=== PATIENT | male | born 1970 | race Caucasian/White ===

== ENCOUNTER 2021-01-20 13:35 | Emergency (ER) | payer BC, MEDICAID ==
[~2021-01-20] VITALS: Ht 175.3 cm; Wt 102.1 kg
[2021-01-20] MEDS ORDERED: ONDANSETRON HCL 4 MG/2 ML VIAL IV ONE ×2 (14:00→15:45)
[2021-01-20 14:40] LABS: Eosinophils # (auto) 0 10 ^3/uL (0-0.8); Hemoglobin 12.3 g/dL (13.5-17.5); Lymphocytes # (auto) 0.5 10 ^3/uL (0.4-5.4); Mean Corpuscular Hemoglobin 22.1 pg (28.0-32.0)
[2021-01-20 14:43] LABS: Basophils # (auto) 0.1 10 ^3/uL (0-0.2); Basophils % (auto) 0.5 % (0.0-2.0); Hematocrit 38.1 % (41.0-53.0); Lymphocytes % (auto) 3.5 % (10.0-50.0); Mean Corpuscular Hgb Conc. 32.3 g/dL (32.0-36.0); Mean Corpuscular Volume 68.4 fL (80.0-100.0); Monocytes # (auto) 0.4 10 ^3/uL (0-1.3); Neutrophils # (auto) 13.3 10 ^3/uL (1.6-8.6); Nucleated Red Blood Cells % 0.1 %; Red Blood Cells 5.56 10^6/uL (4.5-5.90); Red Cell Distribution Width 18.1 % (11.8-14.3); White Blood Cell 14.3 10^3/uL (4.4-10.8)
[2021-01-20 15:12] LABS: Albumin 3.7 g/dL (3.4-5.0); Calcium 9.2 mg/dL (8.5-10.1); Magnesium 2.7 mg/dL (1.6-2.6)
[2021-01-20 15:18] LABS: Urine Bacteria FEW /hpf (None Seen); Urine Blood Negative /uL (Negative); Urine Hyaline Cast MOD /lpf (0 - 2); Urine Mucus FEW (None Seen); Urine Specific Gravity 1.024 (1.001-1.035); Urine WBC 2 /hpf (0 - 3)
[2021-01-20 15:33] LABS: BUN/Creatinine Ratio 20.3; Bilirubin, Total 0.9 mg/dL (0.2-1.0)
[2021-01-20 15:34] LABS: INR 2.62 (0.9-1.15); Partial Thromboplastin Time 39.4 sec (23.6-33.0)
[2021-01-20] MEDS ORDERED: MORPHINE SULFATE 4 MG/ML SYR/VIAL IV ONE (16:00)
[2021-01-20 17:07] VITALS: BP 93/63
== END 2021-01-20 17:10 | disposition home or self-care (01) ==
LOC: ER 13:35
DX: R11.2 Nausea with vomiting, unspecified (principal); E11.9 Type 2 diabetes mellitus without complications; I50.9 Heart failure, unspecified; Z20.822 Contact with and (suspected) exposure to COVID-19; Z90.49 Acquired absence of other specified parts of digestive tract; Z90.89 Acquired absence of other organs; Z95.0 Presence of cardiac pacemaker; Z88.8 Allergy status to other drugs, medicaments and biological substances
CPT/HCPCS: 36415; 71045; 80053; 81001; 83735; 83880; 84484; 85025; 85610; 85730; 87426; 93005; 96374; 96375; 99285; J2270; J2405

== ENCOUNTER 2021-03-11 13:13 | Inpatient (IN) | payer BC, MEDICAID ==
[~2021-03-11] VITALS: Ht 175.3 cm; Wt 107.9 kg
[2021-03-11] MEDS ORDERED: SODIUM CHLORIDE 0.9% 1,000 ML IVB ONE (13:45)
[2021-03-11] MEDS ORDERED: ONDANSETRON HCL 4 MG/2 ML VIAL IV ONE (13:45)
[2021-03-11] MEDS ORDERED: MORPHINE SULFATE 4 MG/ML SYR/VIAL IV ONE (13:45)
[2021-03-11 15:12] LABS: Eosinophils # (auto) 0.1 10 ^3/uL (0-0.8); Lymphocytes # (auto) 1.5 10 ^3/uL (0.4-5.4); Monocytes # (auto) 0.9 10 ^3/uL (0-1.3)
[2021-03-11 15:15] LABS: Basophils # (auto) 0 10 ^3/uL (0-0.2); Basophils % (auto) 0.4 % (0.0-2.0); Eosinophils % (auto) 0.7 % (0.0-7.0); Hematocrit 35.6 % (41.0-53.0); Hemoglobin 11.7 g/dL (13.5-17.5); Lymphocytes % (auto) 14.9 % (10.0-50.0); Mean Corpuscular Hemoglobin 22.1 pg (28.0-32.0); Mean Corpuscular Volume 66.9 fL (80.0-100.0); Monocytes % (auto) 8.4 % (0.0-12.0); Neutrophils # (auto) 7.7 10 ^3/uL (1.6-8.6); Neutrophils % (auto) 75.6 % (37.0-80.0); Nucleated Red Blood Cells % 0.1 %; Red Blood Cells 5.31 10^6/uL (4.5-5.90); Red Cell Distribution Width 18.8 % (11.8-14.3); White Blood Cell 10.2 10^3/uL (4.4-10.8)
[2021-03-11 15:30] LABS: Albumin 3.9 g/dL (3.4-5.0); Calcium 8.6 mg/dL (8.5-10.1)
[2021-03-11 15:36] LABS: BUN/Creatinine Ratio 21.4; Bilirubin, Total 0.5 mg/dL (0.2-1.0); Total Protein 7.8 g/dL (6.4-8.2)
[2021-03-11] MEDS ORDERED: MORPHINE SULFATE INJECTION 2 MG/ML SYRG IV PRN ×2 (16:15→18:15)
[2021-03-11] MEDS ORDERED: NITROGLYCERIN 0.4 MG SL TAB SL PRN ×2 (16:15→18:15)
[2021-03-11 16:45] LABS: Potassium 2.6 mmol/L (3.5-5.1)
[2021-03-11] MEDS: POTASSIUM CHL 20MEQ/50ML 50 ML IV SCH ×3 (17:28→23:04)
[2021-03-11] MEDS ORDERED: SODIUM CHLORIDE 0.9% 1,000 ML IV ONE (17:30)
[2021-03-11] MEDS ORDERED: MAGNESIUM SULFATE 1GM/100ML 100 ML IV ONE (17:30)
[2021-03-11] MEDS ORDERED: PANTOPRAZOLE 40 MG/10 ML VIAL INJ IV ONE (18:00)
[2021-03-11] MEDS ORDERED: DEXTROSE (50%) 50ML SYRG IV PRN (18:00)
[2021-03-11] MEDS ORDERED: BUMETANIDE 2.5mg/10ml (0.25 mg/ml) INJ IV ONE (18:00)
[2021-03-11] MEDS: BUMETANIDE 2.5mg/10ml (0.25 mg/ml) INJ IV SCH (18:13)
[2021-03-11] MEDS ORDERED: LORazepam 0.5 MG TAB PO PRN (18:15)
[2021-03-11] MEDS ORDERED: HYDROcodone-ACET 5/325MG TAB PO PRN (18:15)
[2021-03-11] MEDS ORDERED: METOCLOPRAMIDE HCL 5MG/ml INJ 2ml VIAL IV PRN (18:15)
[2021-03-11] MEDS ORDERED: DOCUSATE SOD 100 MG CAP PO PRN (18:15)
[2021-03-11] MEDS ORDERED: ALUM & MAG HYDROX-SIMETH LIQ(MAALOX) 30 ML PO PRN (18:15)
[2021-03-11 19:20] LABS: INR 2.11 (0.9-1.15); Partial Thromboplastin Time 40.6 sec (23.6-33.0)
[2021-03-11] MEDS: MORPHINE SULFATE INJECTION 2 MG/ML SYRG IV PRN (21:20)
[2021-03-11 21:31] LABS: % Iron Saturation 7.8 % (20-55)
[2021-03-11 21:48] VITALS: BP 105/89
[2021-03-11 22:00] VITALS: BP 105/89
[2021-03-11] MEDS ORDERED: MAGNESIUM OXIDE 400 MG TAB PO SCH (22:00)
[2021-03-11 22:09] LABS: Urine Bacteria NONE SEEN /hpf (None Seen); Urine Blood Negative /uL (Negative); Urine Specific Gravity 1.005 (1.001-1.035); Urine WBC 1 /hpf (0 - 3)
[2021-03-11] MEDS: POTASSIUM CHL 20 Meq TABLET PO SCH (23:05)
[2021-03-11] MEDS: ATORVASTATIN 20 MG TAB PO SCH (23:05)
[2021-03-11] MEDS: ACCU-CHEK COMFORT CURVE STRIP VI SCH (23:05)
[2021-03-11] MEDS: InsuLIN REG 1unit/0.01ml Soln (100units/ml) SC SCH (23:43)
[2021-03-12 00:03] LABS: Alcohol, Urine < 3.0 mg/dL (0-10); Amphetamine Screen, Urine NEGATIVE (NEGATIVE); Barbiturate Scree,Urine NEGATIVE (NEGATIVE); Benzodiazephine Screen, Urine NEGATIVE (NEGATIVE); Cannabinoid Screen, Urine NEGATIVE (NEGATIVE); Cocaine Screen, Urine NEGATIVE (NEGATIVE); Opiate Scree,Urine NEGATIVE (NEGATIVE); Phencyclidine Screen, Urine NEGATIVE (NEGATIVE)
[2021-03-12] MEDS: POTASSIUM CHL 20MEQ/50ML 50 ML IV SCH (00:36)
[2021-03-12] MEDS: SOD CHL 0.9%/ KCL 20MEQ 1,000 ML IV SCH ×3 (02:04→20:29)
[2021-03-12] MEDS: MORPHINE SULFATE INJECTION 2 MG/ML SYRG IV PRN ×3 (02:20→23:23)
[2021-03-12] MEDS ORDERED: METF-929 PO (03:32)
[2021-03-12] MEDS ORDERED: MAGN241.4 PO (03:32)
[2021-03-12] MEDS ORDERED: WARF6TAB21 PO (03:32)
[2021-03-12] MEDS ORDERED: METF-370 PO (03:32)
[2021-03-12] MEDS ORDERED: ALBU108A5 IN (03:32)
[2021-03-12] MEDS ORDERED: POTA10TA51 PO (03:32)
[2021-03-12] MEDS ORDERED: EPLE50TA3 PO (03:32)
[2021-03-12] MEDS ORDERED: ASPI81CH59 PO (03:32)
[2021-03-12] MEDS ORDERED: PANT40T PO (03:32)
[2021-03-12] MEDS ORDERED: GABA400C11 PO (03:32)
[2021-03-12] MEDS ORDERED: BUME1TAB3 PO (03:32)
[2021-03-12] MEDS ORDERED: ATOR20TA50 PO (03:32)
[2021-03-12] MEDS ORDERED: AMIO200T4 PO (03:32)
[2021-03-12] MEDS ORDERED: FERR324T4 PO (03:32)
[2021-03-12] MEDS ORDERED: GABA800T97 PO (03:32)
[2021-03-12] MEDS ORDERED: SILD20TA2 PO (03:32)
[2021-03-12] MEDS ORDERED: MELA3TAB27 PO (03:32)
[2021-03-12] MEDS ORDERED: SERT-160 PO (03:32)
[2021-03-12] MEDS ORDERED: DAPA1TAB4 PO (03:32)
[2021-03-12] MEDS ORDERED: SEMA2INJ SC (03:32)
[2021-03-12 05:00] VITALS: BP 98/72
[2021-03-12 05:42] LABS: Basophils # (auto) 0 10 ^3/uL (0-0.2); Eosinophils # (auto) 0.1 10 ^3/uL (0-0.8); Lymphocytes # (auto) 1.5 10 ^3/uL (0.4-5.4); Nucleated Red Blood Cells % 0.1 %
[2021-03-12 05:44] LABS: Basophils % (auto) 0.4 % (0.0-2.0); Eosinophils % (auto) 1.1 % (0.0-7.0); Hematocrit 30.8 % (41.0-53.0); Hemoglobin 10.3 g/dL (13.5-17.5); Lymphocytes % (auto) 15.7 % (10.0-50.0); Mean Corpuscular Hemoglobin 22.3 pg (28.0-32.0); Mean Corpuscular Hgb Conc. 33.3 g/dL (32.0-36.0); Mean Corpuscular Volume 66.9 fL (80.0-100.0); Monocytes # (auto) 1.2 10 ^3/uL (0-1.3); Monocytes % (auto) 12.6 % (0.0-12.0); Neutrophils # (auto) 6.6 10 ^3/uL (1.6-8.6); Neutrophils % (auto) 70.2 % (37.0-80.0); Red Cell Distribution Width 19.4 % (11.8-14.3); White Blood Cell 9.4 10^3/uL (4.4-10.8)
[2021-03-12 05:56] LABS: INR 1.86 (0.9-1.15); Partial Thromboplastin Time 36.9 sec (23.6-33.0)
[2021-03-12 06:05] LABS: Albumin 3.4 g/dL (3.4-5.0); Calcium 8.1 mg/dL (8.5-10.1); Magnesium 3.2 mg/dL (1.6-2.6)
[2021-03-12 06:12] LABS: BUN/Creatinine Ratio 21.4; Bilirubin, Total 0.5 mg/dL (0.2-1.0); Phosphorus 2.7 mg/dL (2.5-4.90); Total Protein 6.8 g/dL (6.4-8.2); Uric Acid 7.8 mg/dL (3.5-7.2)
[2021-03-12] MEDS: InsuLIN REG 1unit/0.01ml Soln (100units/ml) SC SCH ×4 (07:00→21:33)
[2021-03-12] MEDS: ACCU-CHEK COMFORT CURVE STRIP VI SCH ×4 (07:09→21:30)
[2021-03-12] MEDS: BUMETANIDE 2.5mg/10ml (0.25 mg/ml) INJ IV SCH ×2 (07:10→18:00)
[2021-03-12 09:00] VITALS: BP 103/83
[2021-03-12] MEDS: POTASSIUM CHL 20 Meq TABLET PO SCH ×2 (10:00→21:30)
[2021-03-12] MEDS ORDERED: PANTOPRAZOLE 40 MG/10 ML VIAL INJ IV SCH (10:00)
[2021-03-12] MEDS ORDERED: AMIODARONE HCL 200 MG TAB PO SCH (10:00)
[2021-03-12] MEDS ORDERED: DAPAGLIFLOZIN 5 MG TAB PO SCH (10:00)
[2021-03-12] MEDS ORDERED: SERTRALINE HCL 50 MG TAB PO SCH (10:00)
[2021-03-12 13:00] VITALS: BP 93/69
[2021-03-12 17:00] VITALS: BP 101/49
[2021-03-12] MEDS ORDERED: WARFARIN SODIUM 2 MG TAB PO ONE (17:00)
[2021-03-12] MEDS: ATORVASTATIN 20 MG TAB PO SCH (21:30)
[2021-03-12 22:00] VITALS: BP 104/77
[2021-03-12 23:53] VITALS: BP 100/72
[2021-03-13] MEDS ORDERED: ACETAMINOPHEN 325 MG TAB PO ONE (03:00)
[2021-03-14 13:36] LABS: Hepatitis A Ab IgM Negative
[2021-03-14 13:56] LABS: Hepatitis B Core IgM Negative
[2021-03-14 14:04] LABS: Hepatitis C Antibody Negative (Negative)
== END 2021-03-13 03:02 | disposition left against medical advice (07) | DRG 311 ==
LOC: EDBD 13:13 → ER 13:13 → EDUNIT# 13:13 → TELE-WESTW 18:08
PROVIDERS: ADMIT Hospitalist; ATTEND Family Medicine
DX: I24.9 Acute ischemic heart disease, unspecified (principal); I50.23 Acute on chronic systolic (congestive) heart failure; D68.4 Acquired coagulation factor deficiency; I42.7 Cardiomyopathy due to drug and external agent; Z95.811 Presence of heart assist device; I11.0 Hypertensive heart disease with heart failure; D50.9 Iron deficiency anemia, unspecified; E11.40 Type 2 diabetes mellitus with diabetic neuropathy, unspecified; E66.01 Morbid (severe) obesity due to excess calories; Z53.29 Procedure and treatment not carried out because of patient's decision for other reasons; E78.5 Hyperlipidemia, unspecified; E87.6 Hypokalemia; F15.90 Other stimulant use, unspecified, uncomplicated; F32.A Depression, unspecified; I50.82 Biventricular heart failure; K21.9 Gastro-esophageal reflux disease without esophagitis; E78.00 Pure hypercholesterolemia, unspecified; Z20.822 Contact with and (suspected) exposure to COVID-19; Z82.3 Family history of stroke; Z83.3 Family history of diabetes mellitus; Z91.19 Patient's noncompliance with other medical treatment and regimen; Z95.810 Presence of automatic (implantable) cardiac defibrillator; Z76.82 Awaiting organ transplant status; Z88.8 Allergy status to other drugs, medicaments and biological substances; Z90.49 Acquired absence of other specified parts of digestive tract; Z68.34 Body mass index [BMI] 34.0-34.9, adult; Z79.4 Long term (current) use of insulin
CPT/HCPCS: 36415; 71045; 76705; 80053; 80074; 80307; 81001; 82306; 82962; 83036; 83540; 83550; 83735; 83880; 84100; 84443; 84484; 84550; 85025; 85379; 85610; 85730; 86160; 87040; 87086; 87426; 93005; 96361; 96374; 96375; C9113; G0378; J1815; J2405

== ENCOUNTER → 2022-01-31 | Outpatient (CLI) | payer MEDICAID ==
[~2022-01-31] VITALS: Ht 177.8 cm; Wt 99.3 kg
[~2022-01-31] MED LIST: ADENOSINE 83 MG in GIVE UN-DILUTED 0 ML IV ONE; ADENOSINE 90 MG/30 ML INJ IV ONE; ALBU108A5 IN; AMIO200T4 PO; ASPI81CH59 PO; ATOR20TA50 PO; BUME1TAB3 PO; DAPA1TAB4 PO; EPLE50TA3 PO; FERR324T4 PO; GABA400C11 PO; GABA800T97 PO; MAGN241.4 PO; MELA3TAB27 PO; METF-370 PO; METF-929 PO; PANT40T PO; POTA10TA51 PO; SEMA2INJ SC; SERT-160 PO; SILD20TA2 PO; WARF6TAB21 PO
== END | disposition home or self-care (01) ==
LOC: Rad HDHVI 08:58
PROVIDERS: ATTEND Internal Medicine Cardiovascular Disease
DX: R07.9 Chest pain, unspecified (principal); E78.5 Hyperlipidemia, unspecified; I10 Essential (primary) hypertension; E11.9 Type 2 diabetes mellitus without complications; R06.02 Shortness of breath; I47.20 Ventricular tachycardia, unspecified; Z95.0 Presence of cardiac pacemaker; Z94.1 Heart transplant status; Z79.82 Long term (current) use of aspirin; Z79.899 Other long term (current) drug therapy
CPT/HCPCS: 78452; 93005; 96374; 96375; A9500; J0153

== ENCOUNTER → 2022-02-14 | Outpatient (CLI) | payer MEDICAID ==
[~2022-02-14] MED LIST changes: -ADENOSINE 83 MG in GIVE UN-DILUTED 0 ML IV ONE; -ADENOSINE 90 MG/30 ML INJ IV ONE
== END | disposition home or self-care (01) ==
LOC: Rad HDHVI 08:53
PROVIDERS: ATTEND Internal Medicine Cardiovascular Disease
DX: I08.1 Rheumatic disorders of both mitral and tricuspid valves (principal); I10 Essential (primary) hypertension; E78.5 Hyperlipidemia, unspecified
CPT/HCPCS: 93306

== ENCOUNTER → 2022-11-14 | Outpatient (CLI) | payer OTHER, MEDICAID ==
[~2022-11-14] MED LIST changes: +AMIO200T13 PO; -AMIO200T4 PO; +GABA-1251 PO; -GABA400C11 PO; +WARF-113 PO; -WARF6TAB21 PO
[2022-11-14 10:12] LABS: Basophils # (auto) 0 10 ^3/uL (0-0.2); Basophils % (auto) 0.4 % (0.0-2.0); Eosinophils # (auto) 0.1 10 ^3/uL (0-0.8); Hemoglobin 13.4 g/dL (13.5-17.5); Lymphocytes # (auto) 1.2 10 ^3/uL (0.4-5.4); Monocytes # (auto) 0.7 10 ^3/uL (0-1.3); Neutrophils # (auto) 5.3 10 ^3/uL (1.6-8.6)
[2022-11-14 10:15] LABS: Eosinophils % (auto) 1.6 % (0.0-7.0); Hematocrit 41.8 % (41.0-53.0); Lymphocytes % (auto) 16.2 % (10.0-50.0); Mean Corpuscular Hemoglobin 20.2 pg (28.0-32.0); Monocytes % (auto) 9.2 % (0.0-12.0); Neutrophils % (auto) 72.6 % (37.0-80.0); Nucleated Red Blood Cells % 0.2 %; Red Blood Cells 6.63 10^6/uL (4.5-5.90); Red Cell Distribution Width 19.8 % (11.8-14.3); White Blood Cell 7.4 10^3/uL (4.4-10.8)
[2022-11-14 10:16] LABS: Urine Bacteria NONE SEEN /hpf (None Seen); Urine Blood Negative /uL (Negative); Urine Clarity Clear (Clear); Urine Color Colorless (Yellow); Urine Protein, UAD Negative (Negative); Urine Specific Gravity 1.022 (1.001-1.035); Urine Urobilinogen Normal (Negative); Urine WBC 1 /hpf (0 - 3)
[2022-11-14 10:58] LABS: Platelet Estimate Adequate
[2022-11-14 10:59] LABS: Anisocytosis Slight; Hypochromia Slight
[2022-11-14 11:40] LABS: Folate (Folic Acid) 7.55 ng/mL (>5.38)
[2022-11-14 11:52] LABS: Alanine Aminotransferase 35 U/L (7-40); Albumin 4.8 g/dL (3.2-4.8); Alkaline Phosphatase 131 U/L (46-116); Aspartate Aminotransferase 29 U/L (13-40); BUN/Creatinine Ratio 14.1 (10.0-20.0); Blood Urea Nitrogen 21 mg/dL (9-23); Calcium 9.5 mg/dL (8.5-10.1); Chloride 100 mmol/L (98-107); Cholesterol 161 mg/dL (< 200); Glucose 253 mg/dL (74-106); HDL Cholesterol 37 mg/dL (40-59); Potassium 4.3 mmol/L (3.5-5.1); Sodium 135 mmol/L (136-145); Triglycerides 447 mg/dL (< 150); Uric Acid 6.2 mg/dL (3.7-9.2)
[2022-11-14 11:53] LABS: Bilirubin, Total 0.5 mg/dL (0.2-1.0); Total Protein 7.7 g/dL (5.7-8.2)
== END | disposition home or self-care (01) ==
LOC: LAB 09:19
PROVIDERS: ATTEND Internal Medicine
DX: R79.89 Other specified abnormal findings of blood chemistry (principal); R68.89 Other general symptoms and signs; E78.41 Elevated Lipoprotein(a); R73.09 Other abnormal glucose; E61.2 Magnesium deficiency; D51.9 Vitamin B12 deficiency anemia, unspecified; E55.9 Vitamin D deficiency, unspecified; R82.90 Unspecified abnormal findings in urine
CPT/HCPCS: 36415; 80053; 80061; 81001; 82306; 82607; 82746; 83036; 83735; 84443; 84550; 85025; 87086

== ENCOUNTER → 2023-05-11 | Outpatient (CLI) | payer OTHER, MEDICAID ==
[2023-05-11 09:36] LABS: Basophils # (auto) 0 10 ^3/uL (0-0.2); Eosinophils # (auto) 0.1 10 ^3/uL (0-0.8); Mean Corpuscular Volume 69.6 fL (80.0-100.0); Monocytes # (auto) 0.6 10 ^3/uL (0-1.3); Monocytes % (auto) 8.1 % (0.0-12.0); Red Cell Distribution Width 18.7 % (11.8-14.3)
[2023-05-11 09:38] LABS: Basophils % (auto) 0.4 % (0.0-2.0); Eosinophils % (auto) 1.6 % (0.0-7.0); Hematocrit 42.5 % (41.0-53.0); Hemoglobin 13.7 g/dL (13.5-17.5); Lymphocytes # (auto) 1.5 10 ^3/uL (0.4-5.4); Lymphocytes % (auto) 20.6 % (10.0-50.0); Mean Corpuscular Hemoglobin 22.5 pg (28.0-32.0); Mean Corpuscular Hgb Conc. 32.4 g/dL (32.0-36.0); Neutrophils # (auto) 5.2 10 ^3/uL (1.6-8.6); Neutrophils % (auto) 69.3 % (37.0-80.0); White Blood Cell 7.5 10^3/uL (4.4-10.8)
[2023-05-11 09:40] LABS: Urine Bacteria NONE SEEN /hpf (None Seen); Urine Blood Negative /uL (Negative); Urine Clarity Clear (Clear); Urine Color Yellow (Yellow); Urine Hyaline Cast FEW /lpf (0 - 2); Urine Protein, UAD TRACE (Negative); Urine Specific Gravity 1.028 (1.001-1.035); Urine Urobilinogen Normal (Negative); Urine WBC 1 /hpf (0 - 3)
[2023-05-11 10:39] LABS: Alanine Aminotransferase 33 U/L (7-40); Albumin 4.5 g/dL (3.2-4.8); Alkaline Phosphatase 72 U/L (46-116); Anion Gap 8 (5-15); Aspartate Aminotransferase 32 U/L (13-40); Bilirubin, Total 0.4 mg/dL (0.2-1.0); Blood Urea Nitrogen 15 mg/dL (9-23); Calcium 9.6 mg/dL (8.5-10.1); Carbon Dioxide 22 mmol/L (20-30); Chloride 108 mmol/L (98-107); Cholesterol 111 mg/dL (< 200); Glucose 139 mg/dL (74-106); HDL Cholesterol 26 mg/dL (40-59); LDL Cholesterol 64 mg/dL (< 100); Potassium 4.6 mmol/L (3.5-5.1); Sodium 138 mmol/L (136-145); Total Protein 7.2 g/dL (5.7-8.2); Triglycerides 288 mg/dL (< 150)
[2023-05-11 10:43] LABS: Folate (Folic Acid) 9.2 ng/mL (>5.38)
[2023-05-11 11:24] LABS: Uric Acid 4.7 mg/dL (3.7-9.2)
[2023-05-11 11:25] LABS: Magnesium 1.9 mg/dL (1.6-2.6)
== END | disposition home or self-care (01) ==
LOC: LAB 09:16
PROVIDERS: ATTEND Internal Medicine
DX: R78.89 Finding of other specified substances, not normally found in blood (principal); E78.9 Disorder of lipoprotein metabolism, unspecified; R68.89 Other general symptoms and signs; R73.09 Other abnormal glucose; E61.2 Magnesium deficiency; R82.998 Other abnormal findings in urine; E85.9 Amyloidosis, unspecified; E79.0 Hyperuricemia without signs of inflammatory arthritis and tophaceous disease; D51.9 Vitamin B12 deficiency anemia, unspecified
CPT/HCPCS: 36415; 80053; 80061; 81001; 82306; 82607; 82746; 83036; 83735; 84443; 84550; 85025; 87086

== ENCOUNTER → 2023-08-21 | Outpatient (CLI) | payer OTHER, MEDICAID ==
[~2023-08-21] MED LIST changes: +POTA-36 PO; -POTA10TA51 PO; -SILD20TA2 PO; +SILD20TA41 PO
[2023-08-21 10:05] LABS: Urine Bacteria None Seen /hpf (None Seen)
[2023-08-21 10:24] LABS: Urine Blood Negative /uL (Negative); Urine Clarity Clear (Clear); Urine Color Yellow (Yellow); Urine Protein, UAD TRACE (Negative); Urine Specific Gravity 1.038 (1.001-1.035); Urine Urobilinogen Normal (Negative); Urine WBC <1 /hpf (0 - 3)
[2023-08-21 10:26] LABS: Basophils # (auto) 0 10 ^3/uL (0-0.2); Eosinophils # (auto) 0.1 10 ^3/uL (0-0.8); Lymphocytes # (auto) 1.2 10 ^3/uL (0.4-5.4); Neutrophils # (auto) 2.7 10 ^3/uL (1.6-8.6); Nucleated Red Blood Cells % 0.1 %
[2023-08-21 10:28] LABS: Basophils % (auto) 0.1 % (0.0-2.0); Eosinophils % (auto) 1.6 % (0.0-7.0); Hematocrit 42.4 % (41.0-53.0); Lymphocytes % (auto) 27.2 % (10.0-50.0); Mean Corpuscular Hemoglobin 23.7 pg (28.0-32.0); Mean Corpuscular Volume 71.8 fL (80.0-100.0); Monocytes # (auto) 0.6 10 ^3/uL (0-1.3); Monocytes % (auto) 12.3 % (0.0-12.0); Neutrophils % (auto) 58.8 % (37.0-80.0); Red Cell Distribution Width 17.6 % (11.8-14.3); White Blood Cell 4.5 10^3/uL (4.4-10.8)
[2023-08-21 10:40] LABS: Alanine Aminotransferase 39 U/L (7-40); Albumin 4.4 g/dL (3.2-4.8); Alkaline Phosphatase 79 U/L (46-116); Anion Gap 4 (5-15); Aspartate Aminotransferase 21 U/L (13-40); BUN/Creatinine Ratio 10.7 (10.0-20.0); Bilirubin, Total 0.4 mg/dL (0.2-1.0); Blood Urea Nitrogen 17 mg/dL (9-23); Calcium 9.7 mg/dL (8.5-10.1); Carbon Dioxide 28 mmol/L (20-30); Chloride 110 mmol/L (98-107); Cholesterol 138 mg/dL (< 200); Glucose 160 mg/dL (74-106); HDL Cholesterol 34 mg/dL (40-59); LDL Cholesterol 72 mg/dL (< 100); Magnesium 1.7 mg/dL (1.6-2.6); Phosphorus 2.7 mg/dL (2.4-5.1); Potassium 4.6 mmol/L (3.5-5.1); Sodium 142 mmol/L (136-145); Total Protein 6.8 g/dL (5.7-8.2); Triglycerides 289 mg/dL (< 150)
[2023-08-21 11:04] LABS: Uric Acid 4.9 mg/dL (3.7-9.2)
[2023-08-21 11:33] LABS: Folate (Folic Acid) 8.3 ng/mL (>5.38)
== END | disposition home or self-care (01) ==
LOC: LAB 09:49
PROVIDERS: ATTEND Internal Medicine
DX: E61.2 Magnesium deficiency (principal); E79.0 Hyperuricemia without signs of inflammatory arthritis and tophaceous disease; R73.9 Hyperglycemia, unspecified; E78.49 Other hyperlipidemia; R68.89 Other general symptoms and signs; R94.6 Abnormal results of thyroid function studies; R82.90 Unspecified abnormal findings in urine; D51.9 Vitamin B12 deficiency anemia, unspecified; E55.9 Vitamin D deficiency, unspecified; R82.79 Other abnormal findings on microbiological examination of urine; Z94.1 Heart transplant status
CPT/HCPCS: 36415; 80053; 80061; 80197; 81001; 82306; 82607; 82746; 83036; 83735; 84100; 84443; 84550; 85025

== ENCOUNTER → 2023-11-13 | Outpatient (CLI) | payer OTHER, MEDICAID ==
[~2023-11-13] MED LIST changes: +EPLE50TA PO; -EPLE50TA3 PO
[2023-11-13 11:11] LABS: Basophils # (auto) 0 10 ^3/uL (0-0.2); Basophils % (auto) 0.2 % (0.0-2.0); Eosinophils # (auto) 0.1 10 ^3/uL (0-0.8); Eosinophils % (auto) 1.2 % (0.0-7.0); Hematocrit 43.3 % (41.0-53.0); Hemoglobin 14.2 g/dL (13.5-17.5); Lymphocytes # (auto) 1.4 10 ^3/uL (0.4-5.4); Lymphocytes % (auto) 21.3 % (10.0-50.0); Mean Corpuscular Hgb Conc. 32.9 g/dL (32.0-36.0); Monocytes # (auto) 0.7 10 ^3/uL (0-1.3); Neutrophils # (auto) 4.5 10 ^3/uL (1.6-8.6); Neutrophils % (auto) 66.3 % (37.0-80.0); Nucleated Red Blood Cells % 0.7 %; Platelet Count (auto) 230 10^3/uL (140-450); Red Blood Cells 5.92 10^6/uL (4.5-5.90); Red Cell Distribution Width 17.5 % (11.8-14.3); White Blood Cell 6.8 10^3/uL (4.4-10.8)
[2023-11-13 12:08] LABS: Alanine Aminotransferase 39 U/L (7-40); Albumin 4.5 g/dL (3.2-4.8); Alkaline Phosphatase 95 U/L (46-116); Anion Gap 8 (5-15); Aspartate Aminotransferase 36 U/L (13-40); BUN/Creatinine Ratio 13.4 (10.0-20.0); Bilirubin, Total 0.7 mg/dL (0.2-1.0); Blood Urea Nitrogen 17 mg/dL (9-23); Calcium 9.3 mg/dL (8.7-10.4); Carbon Dioxide 21 mmol/L (20-30); Chloride 110 mmol/L (98-107); Glucose 190 mg/dL (74-106); Magnesium 1.7 mg/dL (1.6-2.6); Phosphorus 3.4 mg/dL (2.4-5.1); Potassium 4.8 mmol/L (3.5-5.1); Sodium 139 mmol/L (136-145); Total Protein 6.9 g/dL (5.7-8.2)
== END | disposition home or self-care (01) ==
LOC: LAB 10:39
DX: Z94.1 Heart transplant status (principal)
CPT/HCPCS: 36415; 80053; 80197; 83735; 84100; 85025

== ENCOUNTER → 2023-12-12 | Outpatient (CLI) | payer OTHER, MEDICAID ==
[2023-12-12 09:44] LABS: Urine Bacteria None Seen /hpf (None Seen)
[2023-12-12 10:13] LABS: Basophils # (auto) 0 10 ^3/uL (0-0.2); Basophils % (auto) 0.3 % (0.0-2.0); Eosinophils # (auto) 0.1 10 ^3/uL (0-0.8); Eosinophils % (auto) 1.3 % (0.0-7.0); Hematocrit 42.6 % (41.0-53.0); Hemoglobin 14.4 g/dL (13.5-17.5); Lymphocytes # (auto) 1.4 10 ^3/uL (0.4-5.4); Lymphocytes % (auto) 23.6 % (10.0-50.0); Mean Corpuscular Hemoglobin 25.1 pg (28.0-32.0); Mean Corpuscular Hgb Conc. 33.9 g/dL (32.0-36.0); Mean Corpuscular Volume 74.2 fL (80.0-100.0); Monocytes # (auto) 0.5 10 ^3/uL (0-1.3); Monocytes % (auto) 9.1 % (0.0-12.0); Neutrophils # (auto) 3.9 10 ^3/uL (1.6-8.6); Neutrophils % (auto) 65.7 % (37.0-80.0); Nucleated Red Blood Cells % 0.1 %; Platelet Count (auto) 202 10^3/uL (140-450); Red Blood Cells 5.73 10^6/uL (4.5-5.90); Red Cell Distribution Width 17.5 % (11.8-14.3); White Blood Cell 5.9 10^3/uL (4.4-10.8)
[2023-12-12 10:29] LABS: Alanine Aminotransferase 37 U/L (7-40); Albumin 4.4 g/dL (3.2-4.8); Alkaline Phosphatase 121 U/L (46-116); Anion Gap 7 (5-15); Aspartate Aminotransferase 25 U/L (13-40); BUN/Creatinine Ratio 11.5 (10.0-20.0); Blood Urea Nitrogen 16 mg/dL (9-23); Calcium 9.4 mg/dL (8.7-10.4); Carbon Dioxide 23 mmol/L (20-31); Chloride 106 mmol/L (98-107); Cholesterol 116 mg/dL (< 200); Glucose 250 mg/dL (74-106); Magnesium 1.8 mg/dL (1.6-2.6); Potassium 4.3 mmol/L (3.5-5.1); Sodium 136 mmol/L (136-145); Total Protein 6.8 g/dL (5.7-8.2); Triglycerides 622 mg/dL (< 150)
[2023-12-12 10:30] LABS: Bilirubin, Total 0.5 mg/dL (0.2-1.0); HDL Cholesterol 31 mg/dL (40-59); Phosphorus 3.2 mg/dL (2.4-5.1)
[2023-12-12 10:45] LABS: Urine Blood Negative /uL (Negative); Urine Clarity Clear (Clear); Urine Color Light-Yellow (Yellow); Urine Protein, UAD Negative (Negative); Urine Specific Gravity 1.035 (1.001-1.035); Urine Urobilinogen Normal (Negative); Urine WBC <1 /hpf (0 - 3)
[2023-12-12 10:54] LABS: Folate (Folic Acid) 8.87 ng/mL (>5.38)
[2023-12-12 11:01] LABS: Uric Acid 7.8 mg/dL (3.7-9.2)
== END | disposition home or self-care (01) ==
LOC: LAB 09:08
PROVIDERS: ATTEND Internal Medicine
DX: Z12.11 Encounter for screening for malignant neoplasm of colon (principal); M54.2 Cervicalgia; E11.69 Type 2 diabetes mellitus with other specified complication; F11.99 Opioid use, unspecified with unspecified opioid-induced disorder
CPT/HCPCS: 36415; 80053; 80061; 80197; 81001; 82306; 82607; 82746; 83036; 83735; 84100; 84443; 84550; 85025; 87086

== ENCOUNTER → 2024-05-20 | Outpatient (CLI) | payer OTHER, MEDICAID ==
[2024-05-20 10:01] LABS: Basophils # (auto) 0 10 ^3/uL (0-0.2); Basophils % (auto) 0.5 % (0.0-2.0); Eosinophils # (auto) 0.1 10 ^3/uL (0-0.8); Eosinophils % (auto) 1.5 % (0.0-7.0); Hematocrit 47.4 % (41.0-53.0); Hemoglobin 15.7 g/dL (13.5-17.5); Lymphocytes # (auto) 1.3 10 ^3/uL (0.4-5.4); Lymphocytes % (auto) 18.9 % (10.0-50.0); Mean Corpuscular Hemoglobin 26.1 pg (28.0-32.0); Mean Corpuscular Hgb Conc. 33.1 g/dL (32.0-36.0); Mean Corpuscular Volume 78.9 fL (80.0-100.0); Monocytes # (auto) 0.7 10 ^3/uL (0-1.3); Monocytes % (auto) 9.4 % (0.0-12.0); Neutrophils % (auto) 69.7 % (37.0-80.0); Nucleated Red Blood Cells % 0.1 %; Platelet Count (auto) 231 10^3/uL (140-450); Red Blood Cells 6.01 10^6/uL (4.5-5.90); Red Cell Distribution Width 15.9 % (11.8-14.3); White Blood Cell 7.1 10^3/uL (4.4-10.8)
[2024-05-20 10:02] LABS: Anion Gap 9 (5-15); Carbon Dioxide 26 mmol/L (20-31); Chloride 100 mmol/L (98-107); Potassium 4.7 mmol/L (3.5-5.1)
[2024-05-20 10:08] LABS: BUN/Creatinine Ratio 10.5 (10.0-20.0); Blood Urea Nitrogen 13 mg/dL (9-23); Magnesium 1.8 mg/dL (1.6-2.6); Total Protein 7.2 g/dL (5.7-8.2)
[2024-05-20 10:09] LABS: Albumin 4.8 g/dL (3.2-4.8); Aspartate Aminotransferase 16 U/L (13-40)
[2024-05-20 10:10] LABS: Bilirubin, Total 0.6 mg/dL (0.2-1.0); Phosphorus 3.2 mg/dL (2.4-5.1)
[2024-05-20 10:12] LABS: Alkaline Phosphatase 122 U/L (46-116); Glucose 367 mg/dL (74-106); Sodium 135 mmol/L (136-145)
[2024-05-20 10:24] LABS: Alanine Aminotransferase 20 U/L (7-40)
== END | disposition home or self-care (01) ==
LOC: LAB 09:19
DX: I50.9 Heart failure, unspecified (principal); Z94.1 Heart transplant status
CPT/HCPCS: 36415; 80053; 80197; 83735; 84100; 85025

== ENCOUNTER → 2024-08-09 | Day surgery (SDC) | payer MEDICARE, MEDICAID ==
[2024-08-07 13:59] LABS: Eosinophils # (auto) 0.1 10 ^3/uL (0-0.8); Hematocrit 48.4 % (41.0-53.0); Hemoglobin 16.1 g/dL (13.5-17.5)
[2024-08-07 14:01] LABS: Basophils # (auto) 0 10 ^3/uL (0-0.2); Basophils % (auto) 0.5 % (0.0-2.0); Eosinophils % (auto) 1.2 % (0.0-7.0); Lymphocytes % (auto) 27.9 % (10.0-50.0); Mean Corpuscular Hemoglobin 26.1 pg (28.0-32.0); Mean Corpuscular Hgb Conc. 33.3 g/dL (32.0-36.0); Mean Corpuscular Volume 78.5 fL (80.0-100.0); Monocytes % (auto) 14.5 % (0.0-12.0); Neutrophils # (auto) 3.9 10 ^3/uL (1.6-8.6); Neutrophils % (auto) 55.9 % (37.0-80.0); Nucleated Red Blood Cells % 0.3 %; Platelet Count (auto) 287 10^3/uL (140-450); Red Blood Cells 6.17 10^6/uL (4.5-5.90); Red Cell Distribution Width 15.9 % (11.8-14.3)
[2024-08-07 14:13] LABS: INR 1.03 (0.9-1.15); Prothrombin Time 10.9 sec (9.3-11.8)
[2024-08-07 14:41] LABS: Alanine Aminotransferase 53 U/L (7-40); Albumin 5.1 g/dL (3.2-4.8); Alkaline Phosphatase 99 U/L (46-116); Anion Gap 10 (5-15); Aspartate Aminotransferase 47 U/L (13-40); BUN/Creatinine Ratio 14.6 (10.0-20.0); Bilirubin, Total 0.7 mg/dL (0.2-1.0); Blood Urea Nitrogen 20 mg/dL (9-23); Calcium 10.3 mg/dL (8.7-10.4); Carbon Dioxide 25 mmol/L (20-31); Chloride 106 mmol/L (98-107); Glucose 151 mg/dL (74-106); Potassium 4.2 mmol/L (3.5-5.1); Sodium 141 mmol/L (136-145); Total Protein 7.7 g/dL (5.7-8.2)
[~2024-08-09] VITALS: Ht 177.8 cm; Wt 113.4 kg
[~2024-08-09] MED LIST changes: +ACET-2058 PO; -ALBU108A5 IN; -AMIO200T13 PO; +AML5T GT; -ATOR20TA50 PO; +CHOL20007 OR; +COLC1CAP PO; -EPLE50TA PO; -FERR324T4 PO; -GABA-1251 PO; -GABA800T97 PO; +HYDR-4072 PO; +INSU100I2 SC; +INSU100I33 SC; +LOSA-533 PO; -MAGN241.4 PO; -MELA3TAB27 PO; -METF-370 PO; -METF-929 PO; +OMEG1400 PO; -POTA-36 PO; +ROSU5TAB5 PO; -SEMA2INJ SC; -SERT-160 PO; -SILD20TA41 PO; +SIRO1POW XX; +TACR1CAP19 OR; -WARF-113 PO
[2024-08-09] MEDS: MIDAZOLAM HCL 5 MG/ML-1ML VIAL ONE ×2 (13:01→13:20)
[2024-08-09] MEDS: fentaNYL CITRATE 100 MCG/2 ML VL ONE (13:01)
[2024-08-09 13:36] VITALS: RESP 13; TEMP 97.2; O2SAT 96
--- NOTE | 2024-08-09 13:47 | DVHNC2 ---
Procedure - DATE OF PROCEDURE: AUGUST 09, 2024 PROCEDURE PERFORMED BY: RASHAAD HILLIARD MD REFERRING PROVIDER:JESSICA PERRY MD PROCEDURE PERFORMED: 1. COLONOSCOPY WITH MODERATE SEDATION 2. COLONOSCOPY WITH HOT SNARE POLYPECTOMY 3. COLONOSCOPY WITH POLYPECTOMY WITH COLD BIOPSY FORCEPS 4. COLONOSCOPY WITH COLD SNARE POLYPECTOMY 5. COLONOSCOPY WITH ENDOCLIP PLACEMENT PRE-PROCEDURE DIAGNOSIS 1. COLON CANCER SCREENING POSTPROCEDURE DIAGNOSIS: 1. NUMEROUS COLON POLYPS 2. SMALL INTERNAL AND EXTERNAL HEMORRHOIDS 3. MODERATE DIVERTICULOSIS INDICATIONS FOR PROCEDURE: PATIENT IS A 54-YEAR-OLD MALE WHO PRESENTS FOR OUTPATIENT COLONOSCOPY FOR SCREENING. HE HAS A HISTORY OF HEART TRANSPLANT. MEDICATIONS USED: 7 MG OF VERSED IV AND 100 MCG OF FENTANYL IV WERE GIVEN IN INCREMENTAL DOSES DETAILS OF THE PROCEDURE: INFORMED CONSENT WAS OBTAINED AFTER RISKS, BENEFITS, AND ALTERNATIVES, WERE DISCUSSED AT LENGTH WITH THE PATIENT. THE PATIENT GAVE CONSENT TO THE PROCEDURES WAS NOT MEDICATION USED FOR SEDATION. HE WAS PLACED IN THE LEFT LATERAL DECUBITUS POSITION. DIGITAL RECTAL EXAM SHOWED SMALL INTERNAL AND EXTERNAL HEMORRHOIDS. AN OLYMPUS VARIABLE TORSION PEDIATRIC COLONOSCOPE WAS INSERTED INTO THE RECTUM ADVANCED TO THE CECUM. THE CECUM WAS IDENTIFIED BY THE ILEOCECAL VALVE AND THE APPENDICEAL ORIFICE . THE SCOPE WAS THEN WITHDRAWN. THE PREP WAS GOOD WITH ONLY SMALL AMOUNTS OF STOOL. PATIENT HAD A BOSTON BOWEL PREP SCORE OF SIX. THE PATIENT HAD SEVERAL POLYPS IN THE ASCENDING COLON REMOVED WITH BIOPSY FORCEPS. THEY MEASURED 2-3 MM. THERE WAS AT LEAST FIVE POLYPS IN THE TRANSVERSE COLON REMOVED WITH COLD BIOPSY FORCEPS, COLD SNARE POLYPECTOMY, AND HOT SNARE POLYPECTOMY. GIVEN THAT THE PATIENT HAS AN AICD A MAGNET WAS PLACED OVER THE AICD WITH HOT SNARE POLYPECTOMY. PATIENT HAD A SHORT RUN OF TACHYCARDIA, AND THEN BRADYCARDIA AND THEN RESUMED A NORMAL SINUS RHYTHM. THE SCOPE WAS WITHDRAWN. SEVERAL OF THE POLYPS REMOVED WITH BIOPSY FORCEPS BUT NO MORE HOT SNARE CAUTERY WAS USED. PATIENT HAD AT LEAST FOUR POLYPS MEASURING BETWEEN 6 MM AND 1 CM IN THE LEFT COLON THAT WERE NOT REMOVED. PATIENT HAD MODERATE DIVERTICULOSIS THROUGHOUT. RETROFLEXION SHOWED INTERNAL HEMORRHOIDS. THE PATIENT TOLERATED THE PROCEDURE. IMPRESSION: 1. NUMEROUS COLON POLYPS REMOVED 2. PATIENT HAS SEVERAL COLON POLYPS THAT WERE NOT REMOVED 3. MODERATE DIVERTICULOSIS 4. INTERNAL AND EXTERNAL HEMORRHOIDS RECOMMENDATIONS: 1. RESUME ASPIRIN IN THREE DAYS 2. FOLLOW UP IN GI CLINIC FOR PROCEDURE AND PATHOLOGY RESULTS 3. HIGH-FIBER DIET 4. PATIENT WILL NEED CARDIOLOGY CLEARANCE BEFORE NEXT PROCEDURE AND IT WILL NEED TO BE PERFORMED WITH ANESTHESIA 5. FOLLOW UP WITH PRIMARY CARE PHYSICIAN I WOULD LIKE TO THANK DR. PERRY FOR THIS REFERRAL RASHAAD HILLIARD MD August 09, 2024 13:47
[2024-08-09 13:55] VITALS: BP 113/55; PULSE 73; RESP 20; O2SAT 95
== END | disposition home or self-care (01) ==
LOC: GI 11:36
PROVIDERS: ATTEND Specialist
DX: Z12.11 Encounter for screening for malignant neoplasm of colon (principal); D12.3 Benign neoplasm of transverse colon; D12.2 Benign neoplasm of ascending colon; K64.8 Other hemorrhoids; K64.4 Residual hemorrhoidal skin tags; K57.30 Diverticulosis of large intestine without perforation or abscess without bleeding; I11.0 Hypertensive heart disease with heart failure; I50.9 Heart failure, unspecified; E11.9 Type 2 diabetes mellitus without complications; F17.210 Nicotine dependence, cigarettes, uncomplicated; E78.00 Pure hypercholesterolemia, unspecified; E66.9 Obesity, unspecified; Z94.1 Heart transplant status; Z88.8 Allergy status to other drugs, medicaments and biological substances; Z95.0 Presence of cardiac pacemaker; Z83.3 Family history of diabetes mellitus; Z79.82 Long term (current) use of aspirin; Z79.4 Long term (current) use of insulin; Z79.899 Other long term (current) drug therapy; Z90.49 Acquired absence of other specified parts of digestive tract
CPT/HCPCS: 36415; 45380; 45385; 80053; 82962; 85025; 85610; 85730; 88305; J2250; J3010; 99152; 99153